=== PATIENT | female | born 1985 | race Caucasian/White ===

== ENCOUNTER 2016-05-01 18:43 | Emergency (ER) | payer OTHER ==
[~2016-05-01] VITALS: Ht 157.5 cm; Wt 93.2 kg
[~2016-05-01 18:43] MED LIST: BENTYL10 MG PO; FIORICET 50-301 EACH PO; IBUPROFEN800 MG PO; MACROBID100 MG PO; NAPROSYN500 MG PO; NOHOMEMEDS; NORCO 5/3251 TABLET PO; NUVARING VAGIN1 EACH VG; PEPCID20 MG PO; PERCOCET 5/31 TABLET PO; PREDNISONE20 MG PO; PRENATAL COMPL1 EACH PO; SPRINTEC1 EACH PO; VALIUM2 MG PO; ZOFRAN ODT4 MG PO; ZOFRAN ODT8 MG PO; ZOFRAN4 MG PO
[2016-05-01 19:04] LABS: HEMATOCRIT 41.8 % (36.0-46.0); MCH 31.3 PG (29.0-34.0); MCHC 35.4 G/DL (30.0-36.0); MCV 88.4 FL (83-99); MEAN PLAT.VOLUME 9.9 uM^3 (9.5-12.4); PLATELET COUNT 257 K/uL (156-360); RBC DIS.WIDTH-SD 38.3 % (39-53); RED BLOOD COUNT 4.73 M/uL (3.80-5.20); WHITE BLOOD COUNT 10.7 K/uL (4.1-10.2)
[2016-05-01 19:17] LABS: CHLORIDE 105 mEq/L (99-109)
[2016-05-01 19:18] LABS: POTASSIUM 3.4 mEq/L (3.7-5.4); SODIUM 141 mEq/L (136-147)
[2016-05-01 19:19] LABS: GLUCOSE 89 mg/dL (70-99)
[2016-05-01 19:21] LABS: ANION GAP 9 MEQ/L (2-14)
[2016-05-01 19:23] LABS: GFR ESTIMATE (CALCULATED) > 59 mL/min/
[2016-05-01 19:24] LABS: UREA NITROGEN (BUN) 17 mg/dL (9-23)
[2016-05-01 19:26] LABS: TROP-I INTERPRETATION NEGATIVE; TROPONIN-I < 0.01 ng/mL (0.0-0.30)
[2016-05-01 19:56] LABS: QUANTITATIVE HCG < 4.0 MIU/ML
[2016-05-01 21:44] LABS: TROP-I INTERPRETATION NEGATIVE; TROPONIN-I < 0.01 ng/mL (0.0-0.30)
[2016-05-01] MEDS ORDERED: INDOCIN50 MG PO (21:55)
[2016-05-01 22:07] VITALS: BP 144/93
== END 2016-05-01 22:08 | disposition home or self-care (01) ==
LOC: EME 18:43
PROVIDERS: Physician Assistant
DX: R07.89 Other chest pain (principal)
CPT/HCPCS: 71020; 80048; 84484; 84702; 85027; 93005; 99281; 99284

== ENCOUNTER 2016-09-21 13:52 | Emergency (ER) | payer OTHER ==
[~2016-09-21 13:52] MED LIST changes: +INDOCIN50 MG PO
== END 2016-09-21 14:48 | disposition left against medical advice (07) ==
LOC: EME 13:52
DX: R10.9 Unspecified abdominal pain (principal); Z53.21 Procedure and treatment not carried out due to patient leaving prior to being seen by health care provider
CPT/HCPCS: 99281; 99284

== ENCOUNTER 2016-09-24 20:01 | Emergency (ER) | payer OTHER ==
[~2016-09-24] VITALS: Ht 154.9 cm; Wt 92.9 kg
[2016-09-24 21:06] LABS: HEMATOCRIT 42.8 % (36.0-46.0); MCH 31.3 PG (29.0-34.0); MCV 89.2 FL (83-99); MEAN PLAT.VOLUME 10.1 uM^3 (9.5-12.4); PLATELET COUNT 262 K/uL (156-360); RBC DIS.WIDTH-CV 11.6 % (11.8-14.6); RBC DIS.WIDTH-SD 37.2 % (39-53); WHITE BLOOD COUNT 8.9 K/uL (4.1-10.2)
[2016-09-24 21:14] LABS: CHLORIDE 106 mEq/L (99-109); POTASSIUM 3.9 mEq/L (3.7-5.4); SODIUM 141 mEq/L (136-147)
[2016-09-24 21:16] LABS: GLUCOSE 93 mg/dL (70-99)
[2016-09-24 21:17] LABS: ANION GAP 9 MEQ/L (2-14)
[2016-09-24 21:18] LABS: TOTAL BILIRUBIN 0.7 mg/dL (0.0-1.0)
[2016-09-24 21:20] LABS: ALKALINE PHOSPHATASE 44 IU/L (3-129); GFR ESTIMATE (CALCULATED) > 59 mL/min/
[2016-09-24 21:21] LABS: UREA NITROGEN (BUN) 13 mg/dL (9-23)
[2016-09-24 21:29] LABS: QUANTITATIVE HCG < 4.0 MIU/ML
[2016-09-24 21:57] LABS: ADD MIUA? YES; BILIRUBIN NEGATIVE; BLOOD SMALL; COLOR YELLOW ((YELLOW)); GLUCOSE (STRIP) NEGATIVE; KETONES NEGATIVE; LEUKOCYTES NEGATIVE; NITRITE NEGATIVE; PROTEIN (STRIP) NEGATIVE; SPECIFIC GRAVITY 1.021 (1.000-1.030); UROBILINOGEN 0.2 MG/DL (0.2-1.0)
[2016-09-24 22:00] LABS: BACTERIA NONE SEEN /HPF; EPITHELIAL CELLS RARE /HPF; MUCUS TRACE /LPF; RED BLOOD CELLS 0-5 /HPF (0-5); UCUL ADDED? NO; WHITE BLOOD CELLS 0-5 /HPF (0-5)
[2016-09-24] MEDS ORDERED: ZOFRAN ODT4 MG PO (22:51)
[2016-09-24] MEDS ORDERED: MOTRIN800 MG PO (22:51)
[2016-09-24] MEDS ORDERED: NORCO 7.5/321 TABLET PO (22:51)
[2016-09-24 23:24] VITALS: BP 146/97
== END 2016-09-24 23:25 | disposition home or self-care (01) ==
LOC: EME 20:01
DX: R10.11 Right upper quadrant pain (principal); R11.0 Nausea
CPT/HCPCS: 76705; 80053; 81003; 84702; 85027; 99281; 99284; J1885